=== PATIENT | male | born 1960 | race Asian ===

== ENCOUNTER 2016-10-14 09:13 | Outpatient (CLI) | payer BC ==
--- NOTE | 2016-10-15 09:47 | Ultrasound Report ---
ULTRASOUND ABDOMEN COMPLETE: Technique: Transabdominal ultrasound with color Doppler interrogation. History: abdominal pain. Findings: The liver demonstrates increased echotexture and attenuates the ultrasound beam consistent with diffuse fatty infiltration. The liver appears normal size and contour. No focal liver mass. The gallbladder dimensions are within normal limits without intraluminal stone, wall thickening, or pericholecystic fluid. The CBD is normal caliber. The visualized portions of the pancreas including the head and proximal body are within normal limits. The kidneys demonstrate no hydronephrosis or mass. Cortical thickness and echogenicity are within normal limits bilaterally. The spleen and aorta are within normal limits. No aneurysmal dilatation is noted. No ascites. The bladder is unremarkable. IMPRESSION: Fatty infiltration of the liver.
== END 2016-10-14 09:14 | disposition home or self-care (01) ==
LOC: US 09:13
PROVIDERS: ATTEND Internal Medicine
DX: K76.0 Fatty (change of) liver, not elsewhere classified (principal)
CPT/HCPCS: 76700